=== PATIENT | female | born 1970 | race Caucasian/White ===

== ENCOUNTER → 2020-01-31 19:03 | Outpatient (REF) | payer MEDICAID, SELFPAY ==
[2020-01-31 20:42] LABS: Bacteria Few HPF (Negative); C & S Indicated? C&S Done As Ordered; Casts Negative LPF (Negative); Crystals Negative HPF (Negative); Epithelial Cells Moderate HPF (Negative); Mucus Negative (Negative); WBC Negative HPF (0-5)
== END ==
LOC: NCHCN 19:03
PROVIDERS: PCP Physician Assistant; Visit Provider Physician Assistant
DX: R31.9 Hematuria, unspecified (principal)
CPT/HCPCS: 87077; 81015; 87086; 87186

== ENCOUNTER 2021-11-25 17:16 | Outpatient (REF) | payer MEDICAID, SELFPAY ==
--- NOTE | 2021-11-25 16:25 | PAPFT_PTH ---
PATIENT: Minoo Mcconnell LOC: [facility]#:[id number] AGE/SX: 51/F ROOM: RE11/25/[address]: Santos Novak : 1970 BED: DIS: 11/25/2021 SPEC #: [id number] RECD: 11/25/21 18:37 STATUS: CARMEN REQ #: [id number] FRANDY: 11/25/21 16:[address]: Carola Novak DEPT: [facility] Cytology RECD BY: Katie Bacon ENTERED: 11/25/21 18:37 SP TYPE: PAPFT OTHR DR: Yaya He Tissues: 1 - CX/ENDOCX FOR PAP SMEARS Procedures: PAP THIN PREP/[facility] Screening HPV DNA PROBE Comments: [id number] (HPV 16 & 18/45)
[2021-11-25 19:45] LABS: Hemoglobin A1C 5.7 % (<5.7)
[2021-11-25 21:45] LABS: Calculated LDL 106 mg/dL (<100); Cholesterol 200 mg/dL (<200); Glucose 84 mg/dL (74-106); HDL Cholesterol 66 mg/dL (40-60); Triglyceride 140 mg/dL (<150)
== END 2021-11-25 17:17 | disposition home or self-care (01) ==
LOC: NCHCN 17:16
PROVIDERS: PCP Physician Assistant; Visit Provider Nurse Practitioner Family
DX: Z13.1 Encounter for screening for diabetes mellitus (principal); Z13.220 Encounter for screening for lipoid disorders; Z12.4 Encounter for screening for malignant neoplasm of cervix
CPT/HCPCS: 80061; 82947; 88142; 83036; 87624

== ENCOUNTER → 2021-12-03 01:10 | Outpatient (CLI) | payer MEDICAID, SELFPAY ==
--- NOTE | 2021-12-03 07:42 | DI.MAMMO_ITS ---
Exam(s) MAMMO SCREENING EXAM: MAMMO SCREENING CLINICAL HISTORY: SCREENING, Z12.39 TECHNIQUE: Mammograms were interpreted according to the usual protocol including computer analysis w [facility] CAD system, tomosynthesis and C-view imaging. COMPARISON: FINDINGS: The breasts are heterogeneously dense. No dominant mass or clumped microcalcification is identified in either breast. The current examination is compared with previous examinations including November 23 and there has been no gross interval change in appearance in comparison with the prior studies. IMPRESSION: No specific evidence of malignancy at this time. Routine screening examinations are suggested at yea rly intervals in this age group according to the ACS ACR guidelines. BI-RADS Category 1 - Negative Breast Density - Category C - Heterogeneously dense
== END ==
PROVIDERS: PCP Physician Assistant; Visit Provider Nurse Practitioner Family
DX: Z12.31 Encounter for screening mammogram for malignant neoplasm of breast (principal); R92.8 Other abnormal and inconclusive findings on diagnostic imaging of breast
CPT/HCPCS: 77063; 77067

== ENCOUNTER → 2022-10-12 15:21 | Outpatient (CLI) | payer OTHER, SELFPAY ==
--- NOTE | 2022-10-12 14:18 | DI.RAD_ITS ---
Exam(s) XR SHOULDER LT COMPLETE 2+V EXAM: XR SHOULDER LT COMPLETE 2+V CLINICAL HISTORY: evaluate pathology, lt shoulder pain, M25.512. TECHNIQUE: 2D digital imaging was performed of the left shoulder. Five images were obtained. AP, G rashey, Y-view and axillary views were obtained. COMPARISON: No exams were available for comparison FINDINGS: BONES: No acute fracture is present. No bony destructive lesion is seen. JOINTS: No dislocation present. SOFT TISSUE: Normal. IMPRESSION: Unremarkable radiographs of the left shoulder. DATA REPOSITORY: RADIATION DOSE DELIVERED:
== END ==
PROVIDERS: PCP Nurse Practitioner Family; Visit Provider Nurse Practitioner Family
DX: M25.512 Pain in left shoulder (principal)
CPT/HCPCS: 73030

== ENCOUNTER 2022-12-11 00:49 | Outpatient (CLI) | payer OTHER, SELFPAY ==
--- NOTE | 2022-12-11 07:45 | DI.MRI_ITS ---
Exam(s) MR UPPER JOINT LT WO EXAM: MR UPPER JOINT LT WO CLINICAL HISTORY: Decreased ROM and persisitent pain. ? derangement,m25.512 TECHNIQUE: Multiplanar multisequence MRI of the shoulder was performed. COMPARISON: CR XR SHOULDER LT COMPLETE 2+V from 10/12/2022 FINDINGS: MARROW:There is no evidence of fracture, Hill-Sachs deformity, nor ominous osseous lesions. ROTATOR CUFF MECHANISM: AC JOINT/ACROMIUM: Mild-moderate degenerative changes in the AC joint.. There is no evidence of os acromiale. Supraspinatus: There is mild increased signal on the articular side of the supraspinatus tendon just proximal to the foot pad insertion consistent with mild tendinitis. No high grade tear. No muscle a trophy. There is mild increased signal/ edema evident in the rotator cuff interval. Infraspinatus: There is increasedarticular surface signal abnormality at the insertional footpad leve l consistent with focal tendinitis and partial thickness tearing at this level. Teres Minor: Intact. No evidence of tear nor muscle atrophy. Subscapularis/anterior cuff: Intact. No abnormal signal at the level of the multipennate insertional fibers. No significant tear nor atrophy. BICEPS TENDON: Intact. Not displaced from the intertubercular groove. No evidence of tear. No tenosynovitis. LABRUM: There is mild increased signal in the superior labrum posterior to the biceps insertion site . The posterior labrum appears intact. Inferior labrum appears intact. No evidence of paralabral cys t. The anterosuperior labrum appears deficient. The middle glenohumeral ligament appears frayed.. Inf erior glenohumeral ligament appears intact GLENOHUMERAL JOINT: No joint effusion nor obvious loose intra-articular bodies. No chondral defects. No osteophytes. No degenerative subarticular cysts. QUADRILATERAL SPACE: No evidence of mass in the region of the axillary nerve and dorsal circumflex hu meral vessels. Visualized triceps muscle at this level appears unremarkable. IMPRESSION: 1. Mild supraspinatus tendinitis. Also area of articular surface tendinitis of insertional aspect of infraspinatus. No high-grade rotator cuff tear. No atrophy. 2. Biceps tendon is intact and nondisplaced. 3. Deficient appearing anterior labrum. DATA REPOSITORY:
--- NOTE | 2022-12-11 19:50 | DI.VRAD_ITS ---
PROCEDURE INFORMATION: Exam: MR Left Upper Extremity Joint Without Contrast; Shoulder Exam date and time: 12/11/2022 12:31 PM Age: 52 years old Clinical indication: Other: Decreased rom and persisitent pain. ? Derangement TECHNIQUE: Imaging protocol: Magnetic resonance imaging of the left upper extremity without contrast. Exam focused on the shoulder. COMPARISON: CR XR SHOULDER LT COMPLETE 2+V 10/12/2022 2:11 PM FINDINGS: Bones/joints: Tiny glenohumeral joint effusion. The acromion is low lying with a tiny undersurface enthesophyte. These findings may contribute to impingement. Mild subacromial-subdeltoid bursitis. Gdsn-qh-gdh[place]au osteoarthritic changes within the acromioclavicular joint with a tiny joint effusion, periarticular marrow edema, marginal osteophytes and capsular hypertrophy. Mild cartilage thinning within the glenohumeral joint without osteoarthritis. Rotator interval: Mild synovial thickening and edema within the rotator interval. Glenoid labrum: A tear is seen within the superior, posterior-superior, posterior and posterior-inferior labrum. This is seen from the 7 to 12 o'clock position with possible extension of the tear to the anterior-superior labrum. No paralabral cyst. Supraspinatus tendon: Mild supraspinatus tendinosis. Minimal fraying of the articular sided fibers involving less than 10% of the tendon thickness. Infraspinatus tendon: Mild infraspinatus tendinosis. A partial thickness intrasubstance tear is seen within the distal footplate of the infraspinatus tendon involving 40-50% of the tendon thickness. A couple subcortical cysts are seen within the humeral head adjacent to the attachment of the infraspinatus tendon. Mild infraspinatus tendinosis. Subscapularis tendon: Mild subscapularis tendinosis. Teres minor tendon: The teres minor tendon is normal appearance. Tendon of biceps brachii: Mild biceps tendinosis without tear. Glenohumeral ligaments: No evidence for acute sprain or tear within the superior glenohumeral ligament. The middle glenohumeral ligament is degenerated and frayed. The inferior glenohumeral ligament is slightly thickened with trace edema. Soft tissues: No fatty muscular atrophy within the rotator cuff muscles. No focal fluid collection or hematoma within the overlying subcutaneous tissues. IMPRESSION: 1. 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 Mild subacromial-subdeltoid bursitis. 2. Mild synovial thickening within the rotator interval with slight thickening of the inferior glenohumeral ligament and a tiny glenohumeral joint effusion. These findings are nonspecific, but can be seen with adhesive capsulitis, in the correct clinical context. 3. Partial-thickness intrasubstance tear within the distal infraspinatus tendon, involving 40-50% of the tendon thickness. 4. Labral tear, described above. No paralabral cyst. Dictated and Authenticated by: Elke Ewing MD. Ordering:DEACON Davies MD
== END 2022-12-11 01:09 ==
PROVIDERS: PCP Nurse Practitioner Family; Visit Provider Nurse Practitioner Family
DX: M19.012 Primary osteoarthritis, left shoulder; S43.432A Superior glenoid labrum lesion of left shoulder, initial encounter; X58.XXXA Exposure to other specified factors, initial encounter
CPT/HCPCS: 73221

== ENCOUNTER 2023-02-08 15:12 | Outpatient (REF) | payer MEDICAID, SELFPAY ==
--- NOTE | 2023-02-09 | PAPFT_PTH ---
PATIENT: Minoo Mcconnell LOC: [facility]#:[id number] AGE/SX: 52/F ROOM: RE02/08/[address]: Santos Novak : 1970 BED: DIS: 02/08/2023 SPEC #: [id number] RECD: 02/09/23 12:52 STATUS: CARMEN REQ #: [id number] FRANDY: 02/09/23 00:[address] Cytology RECD BY: Katie Bacon Tissues: 1 - CX/ENDOCX FOR PAP SMEARS Procedures: PAP THIN PREP/UVM Screening HPV DNA PROBE Comments: [id number] (HPV 16 & 18/45)
== END 2023-02-08 15:13 | disposition home or self-care (01) ==
LOC: NCHCN 15:12
PROVIDERS: PCP Nurse Practitioner Family; Visit Provider Nurse Practitioner Family
DX: Z12.4 Encounter for screening for malignant neoplasm of cervix (principal); Z01.419 Encounter for gynecological examination (general) (routine) without abnormal findings
CPT/HCPCS: 88142; 87624

== ENCOUNTER 2023-02-16 14:57 | Outpatient (REF) | payer MEDICAID, SELFPAY ==
[2023-02-16 19:05] LABS: Calculated LDL 95 mg/dL (<100); Cholesterol 189 mg/dL (<200); HDL Cholesterol 77 mg/dL (40-60); Triglyceride 88 mg/dL (<150)
[2023-02-16 19:09] LABS: Hemoglobin A1C 5.6 % (<5.7)
== END 2023-02-16 14:58 | disposition home or self-care (01) ==
LOC: NCHCN 14:57
PROVIDERS: PCP Nurse Practitioner Family; Visit Provider Nurse Practitioner Family
DX: Z13.6 Encounter for screening for cardiovascular disorders (principal); Z13.1 Encounter for screening for diabetes mellitus
CPT/HCPCS: 80061; 83036

== ENCOUNTER → 2023-02-18 00:26 | Outpatient (CLI) | payer MEDICAID, SELFPAY ==
--- NOTE | 2023-02-18 | DI.MAMMO_ITS ---
Exam(s) MAMMO SCREENING EXAM: MAMMO SCREENING CLINICAL HISTORY: SCREENING MAMMO FOR BREAST CANCER Z12.31 TECHNIQUE: Mammograms were interpreted according to the usual protocol including computer analysis w [employer] CAD system, tomosynthesis and C-view imaging. COMPARISON: 2013 through 2021 FINDINGS: The breasts are composed of heterogeneously dense fibroglandular densities, Breast Density category C . No suspicious masses or suspicious microcalcifications are seen. No skin thickening or abnormal axillary lymph nodes are seen. There has been no significant change from prior exams. IMPRESSION: BI-RADS Category 1, Negative mammogram. Yearly screening mammography is recommended. Breast Density Category C, heterogeneously Dense. The mammogram demonstrates the patient's breast tissue is dense. Dense breast tissue is very common a nd is not abnormal but dense breast tissue can make it harder to find cancer on a mammogram. Also, de nse breast tissue may increase breast cancer risk. This information about the result of the mammogram report was provided to the patient to raise their awareness. Use this report when you speak with the patient about their risks for breast cancer, which includes their family history. At that time, you may recommend additional screening tests (Ultrasound or MRI) as they might be useful based on their r isk. A negative radiographic report should not delay biopsy if a dominant or clinically suspicious mass is present. Up to ten percent of cancers are not identified on mammography. A negative report may reinforce clinical impression. Adenosis and dense breasts may obscure an underlying neoplasm. False positive reports average 6 to 10%.
== END ==
PROVIDERS: PCP Nurse Practitioner Family; Visit Provider Nurse Practitioner Family
DX: Z12.31 Encounter for screening mammogram for malignant neoplasm of breast (principal)
CPT/HCPCS: 77063; 77067